=== PATIENT | female | born 1995 | race American Indian/Alaskan Native ===

== ENCOUNTER 2017-04-02 11:38 | Emergency (ER) | payer MEDICAID ==
[2017-04-02 12:15] LABS: Basophils % (Auto) 0.4 % (0.0-1.8); Eosinophils % (Auto) 0.3 % (0.0-4.3); Hematocrit 38.6 % (30.3-42.9); Hemoglobin 12.6 gm/dl (10.1-14.3); Mean Corpuscular HGB Conc 33 % (30-34); Mean Corpuscular Hemoglobin 28 pg (28-32); Mean Corpuscular Volume 86 fl (79-97); Platelet Count 238 K/mm3 (140-440); Red Blood Count 4.48 M/mm3 (3.65-5.03); White Blood Count 10.8 K/mm3 (4.5-11.0)
[2017-04-02 12:31] LABS: Anion Gap 17 mmol/L; BUN/Creatinine Ratio 12.85; Blood Urea Nitrogen 9 mg/dL (7-17); Calcium 9.4 mg/dL (8.4-10.2); Carbon Dioxide 24 mmol/L (22-30); Chloride 100.3 mmol/L (98-107); Glucose 114 mg/dL (65-100); Potassium 3.7 mmol/L (3.6-5.0); Sodium 138 mmol/L (137-145)
[2017-04-02 13:09] LABS: Bilirubin,Urine NEG (Negative); Blood,Urine MOD (Negative); Ketones,Urine NEG (Negative); Leukocyte Esterase,Urine NEG (Negative); Mucus,Urine FEW /HPF; Nitrite,Urine NEG (Negative); Protein,Urine <15 mg/dL mg/dL (Negative); Urobilinogen,Urine < 2.0 mg/dL (<2.0)
[2017-04-02 18:54] VITALS: BP 121/75
[2017-04-02] MEDS ORDERED: NACL 0.9% 1000 ML 1,000 ML IV ONE (19:04)
[2017-04-02] MEDS ORDERED: MORPHINE IV ONE (19:05)
[2017-04-02] MEDS ORDERED: ZOFRAN IV ONE (19:05)
[2017-04-02 19:55] LABS: Alanine Aminotransferase 25 units/L (7-56); Albumin 4.2 g/dL (3.9-5); Albumin/Globulin Ratio 1.4 %; Alkaline Phosphatase 88 units/L (35-129); Amylase 70 units/L (27-131); Lipase 15 units/L (13-60); Total Protein 7.3 g/dL (6.3-8.2)
[2017-04-02 19:56] LABS: Bilirubin,Direct < 0.2 mg/dL (0-0.2); Bilirubin,Indirect 0.2 mg/dL
[2017-04-02] MEDS ORDERED: TORADOL IV ONE (20:48)
--- NOTE | 2017-04-02 22:20 | Cat Scan Report ---
FINAL REPORT EXAM: CT ABDOMEN PELVIS W CON HISTORY: rlq pain ? appy TECHNIQUE: CT abdomen and pelvis with intravenous contrast PRIORS: None. FINDINGS: No acute abnormality identified in the lung bases. No focal abnormality identified within the liver parenchyma. The spleen demonstrates normal size and attenuation. No pancreatic abnormalities seen. The kidneys demonstrate symmetric contrast enhancement. No evidence of hydronephrosis. The adrenal glands are unremarkable Abdominal aorta is normal in caliber. No pathologically enlarged lymph nodes are identified. No signs of free fluid or free air No evidence of small bowel dilatation. Colon is nondistended. No pericolonic inflammatory change. The appendix is identified and is unremarkable. Urinary bladder is unremarkable. IMPRESSION: Negative. No acute abnormalities seen
--- NOTE | 2017-04-03 00:10 | Ultrasound Report ---
FINAL REPORT EXAM: US PELVIS DUPLEX DOPPLER COMP HISTORY: right sided adnexal pain COMPARISON: CT of the abdomen and pelvis from the same date. TECHNIQUE: Several real-time grayscale and color Doppler images were obtained. Transabdominal and transvaginal exam. Spectral analysis. FINDINGS: Uterus measures 8.2 x 5.5 x 5.8 centimeters. Within the fundal margin of the endometrial canal there appears to be area of entrapped fluid measuring 1.4 x 0.6 x 0.9 centimeters. Endometrial stripe measures 12 millimeters within physiologic limits. No other uterine lesions. Right ovary measures 3.5 x 1.6 x 2.9 centimeters. Left ovary measures 2.9 x 1.8 x 1.7 centimeters. Small follicles are present. Spectral analysis demonstrates arterial waveforms to the ovaries. No adnexal masses or free pelvic fluid. IMPRESSION: Small amount of entrapped fluid along the fundal margin of the uterus. This may relate to patient's menstrual stage. Small amount of hemorrhagic material within the endometrial canal along the mid to lower uterus cannot be excluded. No discrete uterine lesions otherwise. Followup exam suggested within the next 2-3 weeks to assess stability. No adnexal masses. No free fluid. Ovaries are unremarkable.
[2017-04-03] MEDS ORDERED: MOTRIN PO ONE (00:34)
--- NOTE | 2017-04-05 19:14 | Emergency Department Report ---
Entered by DIOGO TYSON, acting as scribe for JAY RUBY PA. <INÉS BURRIS - Last Filed: 04/03/17 00:23> ED Abdominal Pain HPI - General Chief Complaint: Abdominal Pain Stated Complaint: SEVERE CRAMPS Time Seen by Provider: 04/02/17 17:57 - Related Data Previous Rx's Medication Instructions Recorded Last Taken Type Naproxen [Naprosyn TAB] 500 mg PO BID PRN #12 tablet 04/03/17 Unknown Rx Allergies Allergy/AdvReac Type Severity Reaction Status Date / Time No Known Allergies Allergy Unverified 04/02/17 11:50 ED Review of Systems ROS: Stated complaint: SEVERE CRAMPS Other details as noted in HPI ED Past Medical Hx - Medications Home Medications: Home Medications Medication Instructions Recorded Confirmed Last Taken Type Naproxen [Naprosyn TAB] 500 mg PO BID PRN #12 tablet 04/03/17 Unknown Rx ED Course Vital Signs 04/02/17 04/02/17 04/02/17 11:52 18:53 19:27 Temperature 98.3 F Pulse Rate 96 H 100 H Respiratory 16 18 18 Rate Blood Pressure 122/69 Blood Pressure 121/75 [Right] O2 Sat by Pulse 99 100 Oximetry 04/02/17 21:00 Temperature Pulse Rate Respiratory 18 Rate Blood Pressure Blood Pressure [Right] O2 Sat by Pulse Oximetry ED Medical Decision Making - Lab Data Result diagrams: 04/02/17 11:58 04/02/17 11:58 - Radiology Data Radiology results: report reviewed Ultrasound of pelvis Doppler completely reveals no adnexal masses. No free fluid. Ovaries are unremarkable. Small amount of entrapped fluid along the fundal margin of the uterus. This may relate to the patient's menstrual stage. Small amount of hemorrhagic material within the endometrial canal of the mid to lower uterine cannot be excluded. No discrete uterine lesions otherwise. Follow-up exam suggested in the next 2-3 weeks to assess stability. Transvaginal ultrasound., Similar findings. CTscan of the abdomen and pelvis revealed no acute abnormalities. - Medical Decision Making [facility] ultrasound: No adnexal masses. No free fluid. Ovaries are unremarkable. Critical care attestation.: If time is entered above; I have spent that time in minutes in the direct care of this critically ill patient, excluding procedure time. ED Disposition Clinical Impression: Right lower quadrant abdominal pain Disposition: DC-01 TO HOME OR SELFCARE Is pt being admited?: No Does the pt Need Aspirin: No Condition: Stable Instructions: Abdominal Pain (ED) Additional Instructions: Ultrasound transvaginal and pelvic area revealed no adnexal masses. Have no masses. Ovaries were unremarkable. See Discharge instructions referral to [facility] for follow-up. Take naproxen as instructed for pain Please increase her fluid intake Prescriptions: Naproxen [Naprosyn TAB] 500 mg PO BID PRN #12 tablet PRN Reason: Pain Referrals: PRIMARY MD HAZEL [Primary Care Provider] - 3-5 Days CORRIE CARRANZA MD [Staff Physician] - 04/04/17 Forms: Accompanied Note, Work/School Release Form(ED) <JAY RUBY - Last Filed: 04/05/17 19:13> ED Abdominal Pain HPI - General Source: patient Mode of arrival: Ambulatory Limitations: No Limitations - History of Present Illness Initial Comments: 21 y/o female with a PMHx of anemia c/o lower pelvic pain that began this morning at 10:00. Rates pain an 8/10 in severity, which she describes as cramping in quality. Aggravated with nothing and alleviated with nothing. Patient states the pain radiates around her buttocks and up her abdomen. Associated nausea and vomiting x 1 episode, but she denies dysuria, urgency, frequency, diarrhea, fever, chills, and vaginal discharge prior to onset of menstrual cycle. Took 2 tablets of Tylenol with no relief. Patient states this pelvic cramping pain episode is different than her regular menstrual periods. Denies having issues with appendix. Denies Hx of IUD. LMP 03/29/2017. Complaint: abdominal pain (pelvic pain) -: This morning Time: 10:00 Radiation: other (buttocks) Migration to: no migration Severity: severe Severity scale (0 -10): 8 Quality: cramping Consistency: constant, intermittent Improves With: nothing Worsens With: nothing Associated Symptoms: denies other symptoms, nausea, vomiting (x 1 episode). denies: diarrhea, fever, chills, dysuria, hematemesis, hematuria - Related Data LMP Date: 03/29/17 LMP (females 10-50): this week (03/29/2017) ED Review of Systems Comment: All other systems reviewed and negative Constitutional: no symptoms reported. denies: chills, fever Respiratory: no symptoms reported. denies: cough, shortness of breath Cardiovascular: denies: chest pain, palpitations Endocrine: no symptoms reported Gastrointestinal: abdominal pain (pelvic pain), nausea, vomiting (x 1 episode). denies: diarrhea Genitourinary: denies: urgency, dysuria, frequency, hematuria, discharge Musculoskeletal: denies: back pain, joint swelling, arthralgia Skin: denies: rash, lesions Neurological: denies: headache, weakness ED Past Medical Hx - Past Medical History Additional medical history: ANEMIA - Surgical History Additional Surgical History: UMBILICAL HERNIA - Social History Smoking Status: Never Smoker Substance Use Type: None ED Physical Exam - General Limitations: No Limitations General appearance: alert, in no apparent distress - Head Head exam: Present: atraumatic, normocephalic - Eye Eye exam: Present: normal appearance, EOMI Pupils: Present: normal accommodation - ENT ENT exam: Present: normal exam, mucous membranes moist - Neck Neck exam: Present: normal inspection, full ROM. Absent: tenderness, meningismus, lymphadenopathy - Respiratory Respiratory exam: Absent: normal lung sounds bilaterally, respiratory distress, wheezes, rales, rhonchi, stridor - Cardiovascular Cardiovascular Exam: Present: regular rate, normal rhythm, normal heart sounds. Absent: systolic murmur, diastolic murmur, rubs, gallop - GI/Abdominal GI/Abdominal exam: Present: soft, tenderness (lower abdominal tenderness ), normal bowel sounds. Absent: distended, guarding, rebound, rigid, organomegaly , mass, bruit - External exam: Present: normal external exam, other (female kennel helper and female family member present during the exam). Absent: erythema, swelling, lesions, lacerations, ecchymosis Speculum exam: Present: normal speculum exam, vaginal bleeding (patient is currently on her menstrual period), other (female kennel helper and female family member present during the exam). Absent: erythema, vaginal discharge, cervical discharge, foreign body, tissue, laceration Bi-manual exam: Present: normal bi-manual exam, other (female kennel helper and female family member present during the exam). Absent: cervical motion tendernes, adnexal tenderness, adnexal mass, uterine enlargement, uterine tenderness - Extremities Exam Extremities exam: Present: normal inspection, full ROM - Back Exam Back exam: Present: normal inspection, full ROM - Neurological Exam Neurological exam: Present: alert, oriented X3 - Psychiatric Psychiatric exam: Present: normal affect, normal mood - Skin Skin exam: Present: warm, dry, intact. Absent: rash ED Medical Decision Making - Lab Data Result diagrams: 04/02/17 11:58 04/02/17 11:58 - Medical Decision Making A/P: Lower abdominal pain/pelvic pain 1-CT scan within normal limits, labs, UA unremarkable, patient not 2-patient felt nauseous give trial of by mouth 3-pelvis US shows no ovarian torison, good blood flow, no masses 4- pt discharged with f/u This documentation as recorded by the JAH duggan JASMINE,accurately reflects the service I personally performed and the decisions made by ,JAY RUBY PA.
== END 2017-04-03 00:42 | disposition home or self-care (01) ==
LOC: ED 11:38
DX: R10.31 Right lower quadrant pain (principal)
CPT/HCPCS: 36415; 74177; 76830; 80048; 80074; 81001; 82140; 82150; 83690; 84703; 85025; 87210; 87591; 93975; 96361; 96374; 96375; 99285; J1885; J2270; J2405; J7030; Q9967